=== PATIENT | female | born 1965 | race African-American/Black ===

== ENCOUNTER 2019-08-24 03:24 | Emergency (ER) | payer MEDICAID, OTHER ==
[~2019-08-24] VITALS: Ht 165.1 cm; Wt 86.2 kg
[~2019-08-24 03:24] MED LIST: ATENOLOL25 MG ORAL; ATIVAN1 MG ORAL; BACTRIM-DS1 EA ORAL; CIPRO500 MG/51 PO; DAILY VITE1 EACH ORAL; ERYPED 200200 MG/5 M PO; FLAGYL500 MG ORAL; IMODIUM2 MG ORAL; LASIX20 M1 ORAL; LEVSIN-SL0.125 MG SL; METRONIDAZOLE500 MG ORAL; NEURONTIN300 MG PO; NITROFURANTOIN100 M2 ORAL; NORCO 10/3251 EA ORAL; NORCO1 E1 ORAL; NORVASC5 MG ORAL; OXYCODONE HCL E10 MG PO; PLAQUENIL200 MG ORAL; PREDNISOLO15 MG/5 M1 ORAL; PREDNISONE10 MG ORAL; PREDNISONE20 MG ORAL; QUETIAPINE FUMA50 MG ORAL; RISPERDAL1 MG PO; ROBAXIN500 MG PO; ROCEPHIN1 GM IJ; TRAMADOL HCL50 MG ORAL; VITAMIN C500 M1 PO; ZANTAC150 MG ORAL; ZOFRAN ODT4 MG ORAL; ZOFRAN4 M1 ORAL; ZOFRAN4 MG ORAL; ZOLPIDEM TARTRAT5 MG ORAL
--- NOTE | 2019-08-24 03:29 | NUR ---
ED Nurse Note: Patient brought in by ambulance with complaints of fukl body pain with emphasis on bilateral feet. Patient is forgetful but 's contact was rendered for informing of discharge planning since patient only uses public transportation.
[2019-08-24 03:31] VITALS: BP 149/83
--- NOTE | 2019-08-24 03:48 | Emergency Room Report ---
History of Present Illness General Chief Complaint: Pain Source: Patient, Medical Record, EMS Present Illness HPI This is a 54-year-old female with a history of lupus and high blood pressure. She also history of chronic pain. She presents with chief complaint of generalized body pain secondary to her lupus. Onset for last day or so. Pain is 9 out of 10. Diffuse in nature. Her pain medication at home is not helping. No nausea. She says she has had some diarrhea and increased urination. Nothing made it better. Nothing made it worse. Denies any fever chills but denies any trauma. Similar symptom in the past. Allergies: Coded Allergies: NO KNOWN DRUG ALLERGIES (Unverified Allergy, Unknown, 07/06/14) COVID-19 Screening Contact w/high risk pt: No Recent Travel to affected area: No Experienced COVID-19 symptoms?: No Patient History Past Medical History: see triage record, old chart reviewed, HTN Past Surgical History: other Pertinent Family History: none Social History: Denies: smoking Now: No Immunizations: other Reviewed Nursing Documentation: PMH: Agreed; PSxH: Agreed Nursing Documentation-PMH Hx Cardiac Problems: Yes Hx Hypertension: Yes Hx Pacemaker: No Hx Asthma: No Hx COPD: No Hx Diabetes: No Hx Cancer: No Hx Gastrointestinal Problems: Yes - HERNIATED DISC Hx Dialysis: No History Of Psychiatric Problem: Yes - depression, anxiety Hx Neurological Problems: No - LUPUS, CHRONIC PAIN Hx Cerebrovascular Accident: No Hx Seizures: No Review of Systems Eye: Denies: eye pain, blurred vision ENT: Denies: ear pain, nose congestion, throat swelling Respiratory: Denies: cough, shortness of breath Cardiovascular: Denies: chest pain, palpitations Gastrointestinal: Denies: abdominal pain, diarrhea, nausea, vomiting Musculoskeletal: Reports: muscle pain; Denies: back pain, joint pain Skin: Denies: rash Neurological: Denies: headache, numbness Endocrine: Denies: increased thirst, increased urine Hematologic/Lymphatic: Denies: easy bruising All Other Systems: negative except mentioned in HPI Physical Exam Vital Signs Date Time Temp Pulse Resp B/P (MAP) Pulse Ox O2 Delivery O2 Flow Rate FiO2 08/24/19 03:25 98.2 81 20 149/83 (105) 99 Room Air Vitals with high blood pressure Sp02 EP Interpretation: reviewed, normal General Appearance: well appearing, no apparent distress, alert Head: normocephalic, atraumatic Eyes: bilateral eye PERRL, bilateral eye EOMI ENT: hearing grossly normal, normal pharynx Neck: full range of motion, supple, no meningismus Respiratory: chest non-tender, lungs clear, normal breath sounds Cardiovascular #1: regular rate, rhythm, no murmur Gastrointestinal: normal bowel sounds, non tender, no mass, no organomegaly, no bruit, non-distended Musculoskeletal: back normal, normal range of motion, gait/station normal Psychiatric: mood/affect normal Medical Decision Making Diagnostic Impression: Primary Impression: Exacerbation of systemic lupus ER Course Presents with exacerbation of her chronic pain. This may be a lupus flare. Labs unremarkable. Urine showed no infection. Will discharge home. Pain is well controlled now. Last Vital Signs Date Time Temp Pulse Resp B/P (MAP) Pulse Ox O2 Delivery O2 Flow Rate FiO2 08/24/19 03:31 98.2 79 20 149/83 99 Room Air Status: improved Disposition: HOME, SELF-CARE Condition: Stable Additional Instructions: Follow-up with your doctor in 7 days. Increase fluids. Take your pain medication. Return if symptoms worsen. Aramis Fairchild MD Aug 24, 2019 03:48
[2019-08-24] MEDS ORDERED: HYDROmorphone 1mg/ml Carpuject IVP ONE (04:00)
--- NOTE | 2019-08-24 04:16 | NUR ---
ED Nurse Note: Patient provided with warm blankets after expressing that the environment was too cold. Patient is now resting comfortably with no complaiints of pain and IV medication administration. Will continue to monitor for discharge.
[2019-08-24 04:18] LABS: APPEARANCE,URINE CLEAR; BASOPHILS % (AUTO) 1.8 % (0.0-2.0); BILIRUBIN, URINE NEGATIVE (NEGATIVE); COLOR,URINE PALE YELLOW; EOSINOPHILS % (AUTO) 2.3 % (0.0-3.0); GLUCOSE, URINE (UA) NEGATIVE (NEGATIVE); HEMOGLOBIN 15.8 G/DL (12.0-16.0); KETONES,URINE NEGATIVE (NEGATIVE); LEUKOCYTE ESTERASE ,URINE NEGATIVE (NEGATIVE); LYMPHOCYTES % (AUTO) 32.4 % (20.0-45.0); MEAN CORPUSCULAR VOLUME 88 FL (80-99); MONOCYTES % (AUTO) 7.8 % (1.0-10.0); NEUTROPHILS % (AUTO) 55.7 % (45.0-75.0); NITRITE,URINE NEGATIVE (NEGATIVE); PH,URINE 6 (4.5-8.0); PLATELET COUNT 274 K/UL (150-450); PROTEIN,URINE NEGATIVE (NEGATIVE); RED BLOOD COUNT 5.24 M/UL (4.20-5.40); RED CELL DISTRIBUTION WIDTH 11.1 % (11.6-14.8); UROBILINOGEN,URINE NORMAL MG/DL (0.0-1.0); WHITE BLOOD COUNT 11.8 K/UL (4.8-10.8)
[2019-08-24 04:26] LABS: ANION GAP 13 mmol/L (5-15); BLOOD UREA NITROGEN 5 mg/dL (7-18); CALCIUM 9.4 MG/DL (8.5-10.1); CARBON DIOXIDE 26 MMOL/L (21-32); CHLORIDE 108 MMOL/L (98-107); CREATININE 0.6 MG/DL (0.55-1.30); POTASSIUM 3.5 MMOL/L (3.5-5.1); SODIUM 147 MMOL/L (136-145)
[2019-08-24 05:26] VITALS: BP 149/83
--- NOTE | 2019-08-24 05:26 | NUR ---
ER DISCHARGE NOTE: Patient is cleared to be discharged per ERMD, pt is aox4, on room air, with stable vital signs. pt was given dc and prescription instructions, pt was able to verbalize understanding, pt id band and iv site removed without complications. pt is able to ambulate with steady gait. pt took all belongings.
== END 2019-08-24 05:26 | disposition home or self-care (01) ==
LOC: EDUNIT# 03:24 → EDBD 03:24 → EMR 03:51
DX: M32.9 Systemic lupus erythematosus, unspecified (principal); I10 Essential (primary) hypertension; F32.9 Major depressive disorder, single episode, unspecified; F41.9 Anxiety disorder, unspecified
CPT/HCPCS: 36415; 80048; 81001; 85025; 96374; 96375; 99284; J1170; J2405

== ENCOUNTER 2020-07-03 23:45 | Emergency (ER) | payer OTHER, MEDICAID ==
[~2020-07-03] VITALS: Ht 175.3 cm; Wt 72.6 kg
--- NOTE | 2020-07-03 23:55 | NUR ---
ED Nurse Note: Patient BIBA from home, complaining of generalized body aches. Patient's medical history includes Lupus and HTN. Patient is AOx3, disoriented to time, forgetful, calm and cooperative. Vital signs stable.
--- NOTE | 2020-07-04 00:12 | Emergency Room Report ---
History of Present Illness General Chief Complaint: Pain Source: Patient Present Illness HPI This is a 55-year-old female with history of lupus. She presents with chief complaint of exacerbation of her lupus pain. Pain is diffuse in nature. She also has constipation and diarrhea and nausea and vomiting. Onset for last 2 to 3 days. No fever chills. No trauma. Pain is 9 out of 10. Her [place] at home not helping. Denies any other complaint. This is a chronic issue with multiple exacerbations and hospitalization and ER visit. Allergies: Coded Allergies: NO KNOWN DRUG ALLERGIES (Unverified Allergy, Unknown, 07/06/14) COVID-19 Screening Contact w/high risk pt: No Recent Travel to affected area: No Experienced COVID-19 symptoms?: No COVID-19 Testing performed SET UP MECH[employer]IC COATING MACHINES: No Patient History Past Medical History: see triage record, old chart reviewed Past Surgical History: other Pertinent Family History: none Social History: Denies: smoking Now: No Immunizations: other Reviewed Nursing Documentation: PMH: Agreed; PSxH: Agreed Nursing Documentation-PMH Past Medical History: No Stated History Hx Cardiac Problems: Yes Hx Hypertension: Yes Hx Pacemaker: No Hx Asthma: No Hx COPD: No Hx Diabetes: No Hx Cancer: No Hx Gastrointestinal Problems: Yes - HERNIATED DISC Hx Dialysis: No Hx Neurological Problems: No - LUPUS, CHRONIC PAIN Hx Cerebrovascular Accident: No Hx Seizures: No Review of Systems Eye: Denies: eye pain, blurred vision ENT: Denies: ear pain, nose congestion, throat swelling Respiratory: Denies: cough, shortness of breath Cardiovascular: Denies: chest pain, palpitations Gastrointestinal: Reports: abdominal pain; Denies: diarrhea, nausea, vomiting Musculoskeletal: Reports: back pain; Denies: joint pain Skin: Denies: rash Neurological: Denies: headache, numbness Endocrine: Denies: increased thirst, increased urine Hematologic/Lymphatic: Denies: easy bruising All Other Systems: negative except mentioned in HPI Physical Exam Vital Signs Date Time Temp Pulse Resp B/P (MAP) Pulse Ox O2 Delivery O2 Flow Rate FiO2 07/03/20 23:51 98.1 77 18 147/82 (103) 97 Room Air Vitals unremarkable Sp02 EP Interpretation: reviewed, normal General Appearance: well appearing, no apparent distress, alert Head: normocephalic, atraumatic Eyes: bilateral eye PERRL, bilateral eye EOMI ENT: hearing grossly normal, normal pharynx Neck: full range of motion, supple, no meningismus Respiratory: chest non-tender, lungs clear, normal breath sounds Cardiovascular #1: regular rate, rhythm, no murmur Gastrointestinal: normal bowel sounds, non tender, no mass, no organomegaly, no bruit, non-distended Musculoskeletal: back normal, normal range of motion, gait/station normal Psychiatric: mood/affect normal Medical Decision Making Diagnostic Impression: Primary Impression: Exacerbation of systemic lupus ER Course Patient presents with exacerbation of her lupus and pain. No evidence of any acute abdomen. Urine is negative. No evidence of obstruction. Last Vital Signs Date Time Temp Pulse Resp B/P (MAP) Pulse Ox O2 Delivery O2 Flow Rate FiO2 07/03/20 23:51 98.1 77 18 147/82 (103) 97 Room Air Status: improved Disposition: HOME, SELF-CARE Condition: Stable Additional Instructions: Follow-up with your doctor in 7 days. Take your pain medication. Return if symptoms worsen. Aramis Fairchild MD Jul 04, 2020 00:12
[2020-07-04] MEDS ORDERED: HYDROmorphone 1mg/ml Carpuject IVP ONE (00:15)
[2020-07-04 00:34] LABS: APPEARANCE,URINE CLEAR; BASOPHILS % (AUTO) 1.2 % (0.0-2.0); BILIRUBIN, URINE NEGATIVE (NEGATIVE); COLOR,URINE PALE YELLOW; GLUCOSE, URINE (UA) NEGATIVE (NEGATIVE); HEMATOCRIT 43.2 % (37.0-47.0); HEMOGLOBIN 14.5 G/DL (12.0-16.0); KETONES,URINE NEGATIVE (NEGATIVE); LEUKOCYTE ESTERASE ,URINE NEGATIVE (NEGATIVE); LYMPHOCYTES % (AUTO) 29.8 % (20.0-45.0); MEAN CORPUSCULAR VOLUME 94 FL (80-99); MONOCYTES % (AUTO) 8.5 % (1.0-10.0); NEUTROPHILS % (AUTO) 59.6 % (45.0-75.0); NITRITE,URINE NEGATIVE (NEGATIVE); PH,URINE 7 (4.5-8.0); PLATELET COUNT 285 K/UL (150-450); PROTEIN,URINE NEGATIVE (NEGATIVE); RED CELL DISTRIBUTION WIDTH 13.1 % (11.6-14.8); UROBILINOGEN,URINE NORMAL MG/DL (0.0-1.0); WHITE BLOOD COUNT 15.5 K/UL (4.8-10.8)
[2020-07-04 00:36] VITALS: BP 127/96
[2020-07-04 00:42] LABS: ANION GAP 8 mmol/L (5-15); BLOOD UREA NITROGEN 12 mg/dL (7-18); CALCIUM 9.5 MG/DL (8.5-10.1); CARBON DIOXIDE 30 MMOL/L (21-32); CHLORIDE 106 MMOL/L (98-107); CREATININE 0.9 MG/DL (0.55-1.30); POTASSIUM 4.4 MMOL/L (3.5-5.1); SODIUM 144 MMOL/L (136-145)
[2020-07-04 00:46] LABS: ALANINE AMINOTRANSFERASE 19 U/L (12-78); ALBUMIN 3.8 G/DL (3.4-5.0); ALKALINE PHOSPHATASE 103 U/L (46-116); ASPARTATE AMINO TRANSFERASE 12 U/L (15-37); BILIRUBIN,TOTAL 0.3 MG/DL (0.2-1.0)
[2020-07-04 01:52] VITALS: BP 133/77
--- NOTE | 2020-07-04 02:00 | NUR ---
ED Nurse Note: Patient is resting comfortably with eyes closed. No signs of pain or discomfort.
[2020-07-04 04:24] VITALS: BP 137/76
--- NOTE | 2020-07-04 05:18 | NUR ---
ED Nurse Note:Patient is resting comfortably, vitals stable, no signs of pain or discomfort. Patient is ready to be discharged, Lui Patten called, he says he'll be here at 7AM to pick pt up. 126/62, 78
[2020-07-04 09:01] VITALS: BP 137/76
== END 2020-07-04 09:00 | disposition home or self-care (01) ==
LOC: EMR 07-04 00:10
DX: M32.9 Systemic lupus erythematosus, unspecified (principal); G89.29 Other chronic pain; I11.9 Hypertensive heart disease without heart failure
CPT/HCPCS: 36415; 80053; 81001; 85025; 96361; 96374; 96375; 99284; J1170; J2405; J7030

== ENCOUNTER 2020-07-09 17:28 | Emergency (ER) | payer OTHER, MEDICAID ==
[~2020-07-09] VITALS: Ht 165.1 cm; Wt 74.8 kg
[2020-07-09] MEDS ORDERED: HYDROmorphone 1mg/ml Carpuject IVP ONE ×2 (17:45→20:30)
--- NOTE | 2020-07-09 18:00 | Emergency Room Report ---
History of Present Illness General Chief Complaint: General Complaint Source: Medical Record Present Illness HPI 55-year-old female with history of lupus and peripheral neuropathy seen here many times in the past for pain flares here yet again for lupus pain flare. Patient says that she feels generalized body pain that is nonlocalizable. No vision changes, focal numbness or weakness, fevers, chills, chest pain, palpitations, shortness of breath, back pain, abdominal pain, nausea, vomiting, diarrhea, dysuria. Allergies: Coded Allergies: NO KNOWN DRUG ALLERGIES (Unverified Allergy, Unknown, 07/06/14) COVID-19 Screening Contact w/high risk pt: No Recent Travel to affected area: No Experienced COVID-19 symptoms?: No COVID-19 Testing performed CARD BRUSHER: No Nursing Documentation-PMH Hx Cardiac Problems: Yes Hx Hypertension: Yes Hx Pacemaker: No Hx Asthma: No Hx COPD: No Hx Diabetes: No Hx Cancer: No Hx Gastrointestinal Problems: Yes - HERNIATED DISC Hx Dialysis: No Hx Neurological Problems: No - LUPUS, CHRONIC PAIN Hx Cerebrovascular Accident: No Hx Seizures: No Review of Systems All Other Systems: negative except mentioned in HPI Physical Exam Vital Signs Date Time Temp Pulse Resp B/P (MAP) Pulse Ox O2 Delivery O2 Flow Rate FiO2 07/09/20 17:43 98.4 88 16 146/75 (98) 98 Room Air Sp02 EP Interpretation: reviewed, normal General Appearance: no apparent distress, alert, non-toxic Head: normocephalic, atraumatic Eyes: bilateral eye normal inspection, bilateral eye PERRL ENT: hearing grossly normal, normal pharynx, no angioedema, normal voice Neck: full range of motion, supple/symm/no masses Respiratory: chest non-tender, lungs clear, normal breath sounds, speaking full sentences Cardiovascular #1: regular rate, rhythm, no edema Cardiovascular #2: 2+ carotid (R), 2+ carotid (L), 2+ radial (R), 2+ radial (L), 2+ dorsalis pedis (R), 2+ dorsalis pedis (L) Gastrointestinal: normal bowel sounds, non tender, soft, non-distended, no guarding, no rebound Rectal: deferred Genitourinary: normal inspection, no CVA tenderness Musculoskeletal: back normal, normal range of motion, gait/station normal, non- tender Neurologic: alert, motor strength/tone normal, oriented x3, sensory intact, responsive, speech normal Psychiatric: judgement/insight normal, memory normal, mood/affect normal, no suicidal/homicidal ideation Lymphatic: no adenopathy Medical Decision Making Diagnostic Impression: Primary Impression: Lupus ER Course Laboratory Tests Test 07/09/20 17:50 07/09/20 21:05 White Blood Count 13.2 K/UL (4.8-10.8) H Red Blood Count 4.95 M/UL (4.20-5.40) Hemoglobin 15.4 G/DL (12.0-16.0) Hematocrit 47.3 % (37.0-47.0) H Mean Corpuscular Volume 95 FL (80-99) Mean Corpuscular Hemoglobin 31.0 PG (27.0-31.0) Mean Corpuscular Hemoglobin Concent 32.5 G/DL (32.0-36.0) Red Cell Distribution Width 13.2 % (11.6-14.8) Platelet Count 351 K/UL (150-450) Mean Platelet Volume 6.8 FL (6.5-10.1) Neutrophils (%) (Auto) 71.3 % (45.0-75.0) Lymphocytes (%) (Auto) 23.2 % (20.0-45.0) Monocytes (%) (Auto) 4.3 % (1.0-10.0) Eosinophils (%) (Auto) 0.2 % (0.0-3.0) Basophils (%) (Auto) 1.0 % (0.0-2.0) Sodium Level 142 MMOL/L (136-145) Potassium Level 3.8 MMOL/L (3.5-5.1) Chloride Level 104 MMOL/L (98-107) Carbon Dioxide Level 28 MMOL/L (21-32) Anion Gap 10 mmol/L (5-15) Blood Urea Nitrogen 13 mg/dL (7-18) Creatinine 0.8 MG/DL (0.55-1.30) Estimated Glomerular Filtration Rate > 60 mL/min (>60) Glucose Level 115 MG/DL (74-106) H Calcium Level 9.9 MG/DL (8.5-10.1) Total Bilirubin 0.3 MG/DL (0.2-1.0) Aspartate Amino Transferase (AST) 16 U/L (15-37) Alanine Aminotransferase (ALT) 22 U/L (12-78) Alkaline Phosphatase 98 U/L (46-116) Total Protein 8.2 G/DL (6.4-8.2) Albumin 4.0 G/DL (3.4-5.0) Globulin 4.2 g/dL Albumin/Globulin Ratio 1.0 (1.0-2.7) Urine Color Pending Urine Appearance Pending Urine pH Pending Urine Specific [place] Pending Urine Protein Pending Urine Glucose (UA) Pending Urine Ketones Pending Urine Blood Pending Urine Nitrite Pending Urine Bilirubin Pending Urine Urobilinogen Pending Urine Leukocyte Esterase Pending 55-year-old female here with diffuse generalized pain which she says "is just like my usual lupus flares." Patient was here several days ago for the same complaint. She had a normal physical examination. CBC, CMP unremarkable. She was given IV normal saline and 2 mg of Dilaudid. Patient said that she felt much improved after the pain medication was given and was requesting to be discharged home. Patient was told to return with any worsening symptoms. Dis charged in stable condition. Last Vital Signs Date Time Temp Pulse Resp B/P (MAP) Pulse Ox O2 Delivery O2 Flow Rate FiO2 07/09/20 17:43 98.4 88 16 146/75 (98) 98 Room Air Scripts Hydrocodone/Acetaminophen 5-325* (HYDROCODONE/ACETAMINOPHEN 5-325*) 1 Each Tablet 1 TAB ORAL Q4H PRN for For Pain, #10 TAB 0 Refills Prov: Cole Rivera M.D. 07/09/20 Cole Rivera M.D. Jul 09, 2020 18:00
[2020-07-09 18:02] LABS: EOSINOPHILS % (AUTO) 0.2 % (0.0-3.0); HEMATOCRIT 47.3 % (37.0-47.0); HEMOGLOBIN 15.4 G/DL (12.0-16.0); LYMPHOCYTES % (AUTO) 23.2 % (20.0-45.0); MEAN CORPUSCULAR VOLUME 95 FL (80-99); MONOCYTES % (AUTO) 4.3 % (1.0-10.0); NEUTROPHILS % (AUTO) 71.3 % (45.0-75.0); PLATELET COUNT 351 K/UL (150-450); RED BLOOD COUNT 4.95 M/UL (4.20-5.40); RED CELL DISTRIBUTION WIDTH 13.2 % (11.6-14.8); WHITE BLOOD COUNT 13.2 K/UL (4.8-10.8)
[2020-07-09 18:10] VITALS: BP 152/93
[2020-07-09 18:10] LABS: ANION GAP 10 mmol/L (5-15); BLOOD UREA NITROGEN 13 mg/dL (7-18); CALCIUM 9.9 MG/DL (8.5-10.1); CARBON DIOXIDE 28 MMOL/L (21-32); CHLORIDE 104 MMOL/L (98-107); CREATININE 0.8 MG/DL (0.55-1.30); POTASSIUM 3.8 MMOL/L (3.5-5.1); SODIUM 142 MMOL/L (136-145)
[2020-07-09 18:14] LABS: ALANINE AMINOTRANSFERASE 22 U/L (12-78); ALKALINE PHOSPHATASE 98 U/L (46-116); ASPARTATE AMINO TRANSFERASE 16 U/L (15-37); BILIRUBIN,TOTAL 0.3 MG/DL (0.2-1.0)
--- NOTE | 2020-07-09 18:23 | NUR ---
55-year-old female with history of lupus and peripheral neuropathy seen here many times in the past for pain flares here yet again for lupus pain flare. Patient says that she feels generalized body pain that is nonlocalizable. No vision changes, focal numbness or weakness, fevers, chills, chest pain, palpitations, shortness of breath, back pain, abdominal pain, nausea, vomiting, diarrhea, dysuria.
[2020-07-09 20:25] VITALS: BP 133/64
[2020-07-09] MEDS ORDERED: HYDROCODON-ACE1 EA15 ORAL (21:23)
[2020-07-09 21:31] LABS: APPEARANCE,URINE CLEAR; BILIRUBIN, URINE NEGATIVE (NEGATIVE); COLOR,URINE PALE YELLOW; GLUCOSE, URINE (UA) NEGATIVE (NEGATIVE); KETONES,URINE NEGATIVE (NEGATIVE); LEUKOCYTE ESTERASE ,URINE NEGATIVE (NEGATIVE); NITRITE,URINE NEGATIVE (NEGATIVE); PH,URINE 7 (4.5-8.0); PROTEIN,URINE NEGATIVE (NEGATIVE); UROBILINOGEN,URINE NORMAL MG/DL (0.0-1.0)
[2020-07-09 21:39] VITALS: BP 141/75
== END 2020-07-09 21:44 | disposition home or self-care (01) ==
LOC: EDBD 17:28 → EMR 19:54
DX: M32.9 Systemic lupus erythematosus, unspecified (principal); G89.29 Other chronic pain; I11.9 Hypertensive heart disease without heart failure
CPT/HCPCS: 36415; 80053; 81003; 85025; 96361; 96374; 96376; 99284; J1170

== ENCOUNTER 2020-07-11 23:30 | Emergency (ER) | payer OTHER, MEDICAID ==
[~2020-07-11] VITALS: Ht 175.3 cm; Wt 74.8 kg
[~2020-07-11 23:30] MED LIST changes: +HYDROCODON-ACE1 EA15 ORAL
[2020-07-11] MEDS ORDERED: HYDROmorphone 1mg/ml Carpuject IM ONE (23:45)
--- NOTE | 2020-07-11 23:45 | NUR ---
ED Nurse Note:Patient brought in the ED, complaining of generalized body pain, pt has hx of Lupus.
--- NOTE | 2020-07-11 23:50 | Emergency Room Report ---
History of Present Illness General Chief Complaint: Pain Source: Patient, Medical Record, EMS Present Illness HPI Is a 55-year-old female with a history of lupus with multiple exacerbation of her chronic pain. Pain is diffuse in nature. She has been here several times for this. She was here recently a couple days ago. She says she ran out of her [place]. No fever chills. No trauma. Pain is 10 out of 10. No nausea vomiting or diarrhea. Denies any other complaint. Allergies: Coded Allergies: NO KNOWN DRUG ALLERGIES (Unverified Allergy, Unknown, 07/06/14) COVID-19 Screening Contact w/high risk pt: No Recent Travel to affected area: No Experienced COVID-19 symptoms?: No COVID-19 Testing performed GROUTER HELPER: No Patient History Past Medical History: see triage record, old chart reviewed Past Surgical History: other Pertinent Family History: none Social History: Denies: smoking Now: No Immunizations: other Reviewed Nursing Documentation: PMH: Agreed; PSxH: Agreed Nursing Documentation-PMH Hx Cardiac Problems: Yes Hx Hypertension: Yes Hx Pacemaker: No Hx Asthma: No Hx COPD: No Hx Diabetes: No Hx Cancer: No Hx Gastrointestinal Problems: Yes - HERNIATED DISC Hx Dialysis: No Hx Neurological Problems: No - LUPUS, CHRONIC PAIN Hx Cerebrovascular Accident: No Hx Seizures: No Review of Systems Eye: Denies: eye pain, blurred vision ENT: Denies: ear pain, nose congestion, throat swelling Respiratory: Denies: cough, shortness of breath Cardiovascular: Denies: chest pain, palpitations Gastrointestinal: Denies: abdominal pain, diarrhea, nausea, vomiting Musculoskeletal: Reports: back pain, muscle pain; Denies: joint pain Skin: Denies: rash Neurological: Denies: headache, numbness Endocrine: Denies: increased thirst, increased urine Hematologic/Lymphatic: Denies: easy bruising All Other Systems: negative except mentioned in HPI Physical Exam Vital Signs Date Time Temp Pulse Resp B/P (MAP) Pulse Ox O2 Delivery O2 Flow Rate FiO2 07/11/20 23:31 98.8 74 18 153/77 (102) 99 Room Air Vitals with high blood pressure Sp02 EP Interpretation: reviewed, normal General Appearance: well appearing, no apparent distress, alert Head: normocephalic, atraumatic Eyes: bilateral eye PERRL, bilateral eye EOMI ENT: hearing grossly normal, normal pharynx Neck: full range of motion, supple, no meningismus Respiratory: chest non-tender, lungs clear, normal breath sounds Cardiovascular #1: regular rate, rhythm, no murmur Gastrointestinal: normal bowel sounds, non tender, no mass, no organomegaly, no bruit, non-distended Musculoskeletal: back normal, normal range of motion, gait/station normal Psychiatric: mood/affect normal Medical Decision Making Diagnostic Impression: Primary Impression: Exacerbation of systemic lupus Additional Impression: Opioid dependence Qualified Codes: F11.20 - Opioid dependence, uncomplicated ER Course Patient with exacerbation of chronic pain. No evidence of systemic illness or infection. Better after pain medication. Will discharge home. Last Vital Signs Date Time Temp Pulse Resp B/P (MAP) Pulse Ox O2 Delivery O2 Flow Rate FiO2 07/11/20 23:31 98.8 74 18 153/77 (102) 99 Room Air Status: improved Disposition: HOME, SELF-CARE Condition: Stable Scripts Hydrocodone/Acetaminophen 5-325* (HYDROCODONE/ACETAMINOPHEN 5-325*) 1 Each Tablet 1 TAB ORAL Q6H PRN for For Pain, #20 TAB 0 Refills Prov: Aramis Fairchild MD 07/12/20 Additional Instructions: Follow-up with your doctor in 3 to 7 days for refills on your medication. Return if symptoms worsen. Aramis Fairchild MD Jul 11, 2020 23:50
[2020-07-12] MEDS ORDERED: HYDROCODON-ACE1 EA15 ORAL (00:34)
[2020-07-12 00:51] VITALS: BP 153/77
--- NOTE | 2020-07-12 00:54 | NUR ---
ER DISCHARGE NOTE: Patient is cleared to be discharged per ERMD, pt is aox3 disoriented to time, on room air, with stable vital signs. pt was given dc and prescription instructions, pt was able to verbalize understanding, pt id band removed without complications. pt is able to ambulate with steady gait. pt took all belongings.
== END 2020-07-12 00:57 | disposition home or self-care (01) ==
LOC: EDBD 23:30 → EMR 07-12 00:05
DX: F11.20 Opioid dependence, uncomplicated (principal); G89.29 Other chronic pain; I11.9 Hypertensive heart disease without heart failure; Z79.1 Long term (current) use of non-steroidal anti-inflammatories (NSAID)
CPT/HCPCS: 96372; 99283; J1170

== ENCOUNTER 2020-07-14 13:41 | Emergency (ER) | payer OTHER, MEDICAID ==
[~2020-07-14] VITALS: Ht 172.7 cm; Wt 68.0 kg
--- NOTE | 2020-07-14 14:11 | Emergency Room Report ---
History of Present Illness General Chief Complaint: Pain Source: Patient Present Illness HPI Disclaimer: Please note that this report is being documented using DRAGON technology. This can lead to erroneous entry secondary to incorrect interpretation by the dictating instrument. HPI: 55-year-old female history of lupus presents for generalized body pain. Duration of 2 days. No injury reported. Currently she is only complaining of pain in the right arm where EMS tried to place an IV line. Otherwise she complains of generalized aching muscles and joints. Denies abdominal pain, fever, chills, nausea, vomiting, diarrhea, dysuria or hematuria. She does report constipation. She takes hydrocodone, tramadol at home for control of pain. She states is not helping. She has an appointment to see her PMD tomorrow. Denies cough, congestion, chest pain, palpitations, shortness of breath. Seen at this emergency department multiple times for similar presentation. PMH: Lupus PSH: Reviewed Allergies: None reported Social Hx: None reported Allergies: Coded Allergies: NO KNOWN DRUG ALLERGIES (Unverified Allergy, Unknown, 07/06/14) COVID-19 Screening Contact w/high risk pt: No Recent Travel to affected area: No Experienced COVID-19 symptoms?: No COVID-19 Testing performed FLOUR BROKER: No Nursing Documentation-PMH Hx Cardiac Problems: Yes Hx Hypertension: Yes Hx Pacemaker: No Hx Asthma: No Hx COPD: No Hx Diabetes: No Hx Cancer: No Hx Gastrointestinal Problems: Yes - HERNIATED DISC Hx Dialysis: No Hx Neurological Problems: No - LUPUS, CHRONIC PAIN Hx Cerebrovascular Accident: No Hx Seizures: No Review of Systems All Other Systems: negative except mentioned in HPI Physical Exam Vital Signs Date Time Temp Pulse Resp B/P (MAP) Pulse Ox O2 Delivery O2 Flow Rate FiO2 07/14/20 13:30 98.2 70 18 131/77 (95) 97 Room Air General: Awake and alert, no acute distress HEENT: NC/AT. EOMI. Cardiovascular: RRR. S1 and S2 normal. No murmur appreciated Resp: Normal work of breathing. No cough, wheezing or crackles appreciated Abdomen: Abdomen is soft, nondistended. Obese abdomen. Nontender Skin: Intact. No abrasions, laceration or rash over the exposed skin MSK: Normal tone and bulk. Moving all extremities. No obvious deformity. Diffuse tenderness to palpation in the major muscles and joints. No limitation to range of motion. Neuro: Awake and alert. Mentating appropriately. Medical Decision Making Diagnostic Impression: Primary Impression: Myalgia ER Course 55-year-old female history of lupus presents for body wide pain. Also reporting constipation. Abdomen x-ray shows nonspecific bowel gas pattern. No obvious obstruction. Slight elevation in white count is seen on her prior visits. Chemistry unremarkable. Cures report shows patient recently filled a short-term prescription for additional pain medication and should still have some of her 30-day supply from May as of today. She is scheduled to see her doctor tomorrow. Stable for outpatient follow-up. Laboratory Tests Test 07/14/20 14:17 White Blood Count 13.5 K/UL (4.8-10.8) H Red Blood Count 5.85 M/UL (4.20-5.40) H Hemoglobin 17.5 G/DL (12.0-16.0) H Hematocrit 56.1 % (37.0-47.0) H Mean Corpuscular Volume 96 FL (80-99) Mean Corpuscular Hemoglobin 29.8 PG (27.0-31.0) Mean Corpuscular Hemoglobin Concent 31.1 G/DL (32.0-36.0) L Red Cell Distribution Width 13.1 % (11.6-14.8) Platelet Count 242 K/UL (150-450) Mean Platelet Volume 7.3 FL (6.5-10.1) Neutrophils (%) (Auto) 78.3 % (45.0-75.0) H Lymphocytes (%) (Auto) 17.3 % (20.0-45.0) L Monocytes (%) (Auto) 3.4 % (1.0-10.0) Eosinophils (%) (Auto) 0.3 % (0.0-3.0) Basophils (%) (Auto) 0.6 % (0.0-2.0) Sodium Level 143 MMOL/L (136-145) Potassium Level 4.2 MMOL/L (3.5-5.1) Chloride Level 106 MMOL/L (98-107) Carbon Dioxide Level 23 MMOL/L (21-32) Anion Gap 14 mmol/L (5-15) Blood Urea Nitrogen 10 mg/dL (7-18) Creatinine 0.7 MG/DL (0.55-1.30) Estimated Glomerular Filtration Rate > 60 mL/min (>60) Glucose Level 112 MG/DL (74-106) H Calcium Level 10.2 MG/DL (8.5-10.1) H Other X-Ray Diagnostic Results Other X-Ray Diagnostic Results : X-Ray ordered: Abdomen # of Views/Limited Vs Complete: 1 View Indication: Other - Constipation EP Interpretation: Yes Interpretation: nonspecific bowel gas, no sbo Impression: No acute disease Electronically Signed by: Electronically signed by Dr. Amilcar Moeller MD Last Vital Signs Date Time Temp Pulse Resp B/P (MAP) Pulse Ox O2 Delivery O2 Flow Rate FiO2 07/14/20 13:30 98.2 70 18 131/77 (95) 97 Room Air Disposition: HOME, SELF-CARE Condition: Stable Amilcar Moeller MD Jul 14, 2020 14:11
[2020-07-14] MEDS ORDERED: HYDROmorphone 1mg/ml Carpuject IVP ONE (14:15)
[2020-07-14 14:31] VITALS: BP 145/69
[2020-07-14 15:06] LABS: BASOPHILS % (AUTO) 0.6 % (0.0-2.0); EOSINOPHILS % (AUTO) 0.3 % (0.0-3.0); HEMATOCRIT 56.1 % (37.0-47.0); HEMOGLOBIN 17.5 G/DL (12.0-16.0); LYMPHOCYTES % (AUTO) 17.3 % (20.0-45.0); MEAN CORPUSCULAR VOLUME 96 FL (80-99); MONOCYTES % (AUTO) 3.4 % (1.0-10.0); NEUTROPHILS % (AUTO) 78.3 % (45.0-75.0); PLATELET COUNT 242 K/UL (150-450); RED BLOOD COUNT 5.85 M/UL (4.20-5.40); RED CELL DISTRIBUTION WIDTH 13.1 % (11.6-14.8); WHITE BLOOD COUNT 13.5 K/UL (4.8-10.8)
[2020-07-14 15:13] LABS: ANION GAP 14 mmol/L (5-15); BLOOD UREA NITROGEN 10 mg/dL (7-18); CALCIUM 10.2 MG/DL (8.5-10.1); CARBON DIOXIDE 23 MMOL/L (21-32); CHLORIDE 106 MMOL/L (98-107); CREATININE 0.7 MG/DL (0.55-1.30); POTASSIUM 4.2 MMOL/L (3.5-5.1); SODIUM 143 MMOL/L (136-145)
--- NOTE | 2020-07-14 15:55 | Diagnostic Imaging Report ---
Indication: Abdominal pain Technique: XRAY Abdomen 1v Comparison: None Findings: Nonspecific, not overtly obstructive bowel gas pattern. No gaseous distention of small bowel loops or differential air-fluid levels are noted. There are surgical clips in the right upper quadrant. Degenerative changes noted in the lower lumbar spine. No acute osseous abnormality. Imaged lung bases grossly clear. Impression: Nonobstructive bowel gas pattern.
[2020-07-14 15:57] VITALS: BP 114/65
== END 2020-07-14 16:35 | disposition home or self-care (01) ==
LOC: EDBD 13:41 → EMR 15:31
DX: M79.18 Myalgia, other site (principal); I10 Essential (primary) hypertension; E66.9 Obesity, unspecified; K59.00 Constipation, unspecified
CPT/HCPCS: 36415; 74018; 80048; 85025; 96374; 99284; J1170

== ENCOUNTER 2020-07-22 13:48 | Emergency (ER) | payer OTHER, MEDICAID ==
[~2020-07-22] VITALS: Ht 165.1 cm; Wt 79.4 kg
--- NOTE | 2020-07-22 14:28 | Emergency Room Report ---
History of Present Illness General Chief Complaint: General Complaint Source: Patient Present Illness HPI Disclaimer: Please note that this report is being documented using [employer] technology. This can lead to erroneous entry secondary to incorrect interpretation by the dictating instrument. HPI: 55-year-old female history of lupus presents for generalized body aches. She reports pain in the joints in the upper and lower limbs. Also complaining of some pain in the muscles. Denies injury or fall. Denies change in strength. Denies numbness or tingling. Denies fever, chills, nausea, vomiting, diarrhea or other changes in her health. She states her home pain medication is not adequately controlling her symptoms at this time. She states this is a typical lupus flare for her. Has not seen her PMD lately. States she does not follow with rheumatology. PMH: Lupus PSH: Reviewed Allergies: Denied Social Hx: Reviewed Allergies: Coded Allergies: NO KNOWN DRUG ALLERGIES (Unverified Allergy, Unknown, 07/06/14) COVID-19 Screening Contact w/high risk pt: No Recent Travel to affected area: No Experienced COVID-19 symptoms?: No COVID-19 Testing performed FISH AND WILDLIFE WARDEN: No Nursing Documentation-PMH Hx Cardiac Problems: Yes Hx Hypertension: Yes Hx Pacemaker: No Hx Asthma: No Hx COPD: No Hx Diabetes: No Hx Cancer: No Hx Gastrointestinal Problems: Yes - HERNIATED DISC Hx Dialysis: No Hx Neurological Problems: No - LUPUS, CHRONIC PAIN Hx Cerebrovascular Accident: No Hx Seizures: No Review of Systems All Other Systems: negative except mentioned in HPI Physical Exam Vital Signs Date Time Temp Pulse Resp B/P (MAP) Pulse Ox O2 Delivery O2 Flow Rate FiO2 07/22/20 13:51 98.1 86 18 150/90 (110) 98 Room Air General: Awake and alert, no acute distress HEENT: NC/AT. EOMI. Cardiovascular: RRR. Resp: Normal work of breathing. Skin: Intact. No abrasions, laceration or rash over the exposed skin MSK: Normal tone and bulk. Moving all extremities. No obvious deformity. Tende rness in muscle and joints. No focal tenderness. Neuro: Awake and alert. Mentating appropriately. Medical Decision Making Diagnostic Impression: Primary Impression: Myalgia ER Course Is a 55-year-old female history of lupus presenting for generalized body pain. Patient here multiple times with similar symptoms. Recently completed a course of steroids. She is requesting IV opiates. I discussed with patient that her chronic lupus condition should be managed by her PMD and that she should see rheumatology regularly. Cures report shows recently filled prescription of 90 tablets of hydrocodone 10 mg on 07/15. Patient is otherwise well and has no other complaints aside from aches and pains in the muscles and joints. Do not believe she requires emergent labs or imaging. Stable for outpatient follow-up. Last Vital Signs Date Time Temp Pulse Resp B/P (MAP) Pulse Ox O2 Delivery O2 Flow Rate FiO2 07/22/20 13:51 98.1 86 18 150/90 (110) 98 Room Air Disposition: HOME, SELF-CARE Condition: Stable Referrals: NON PHYSICIAN (PCP) [facility] Additional Instructions: Please follow-up with your doctor to discuss your current medication regimen. Please follow-up with your primary care doctor in the next 1 to 3 days to discuss this emergency department visit and for reevaluation. If you have any new or worsening symptoms please return to the emergency department for reevaluation. Please note that this report is being documented using [employer] technology. This can lead to erroneous entry secondary to incorrect interpretation by the dictating instrument. Amilcar Moeller MD Jul 22, 2020 14:28
[2020-07-22] MEDS ORDERED: Ketorolac 30mg Inj IM ONE (14:30)
[2020-07-22 14:59] VITALS: BP 148/69
--- NOTE | 2020-07-22 14:59 | NUR ---
ED Nurse Note: Pt cleared by health care Provider for discharge. DC instructions given and explained to pt and verbalized understanding of teachings. All medical deviecs such as ID band removed. Pt is AAO x4, ambulatory and left with all personal belongings.
== END 2020-07-22 15:01 | disposition home or self-care (01) ==
LOC: EDBD 13:48 → EDUNIT# 13:48 → EMR 14:18
DX: M79.10 Myalgia, unspecified site (principal); I10 Essential (primary) hypertension; M32.9 Systemic lupus erythematosus, unspecified
CPT/HCPCS: 96372; 99283; J1885

== ENCOUNTER 2020-07-25 22:45 | Emergency (ER) | payer OTHER, MEDICAID ==
[~2020-07-25] VITALS: Ht 172.7 cm; Wt 77.1 kg
--- NOTE | 2020-07-25 22:53 | Emergency Room Report ---
History of Present Illness General Chief Complaint: Pain Source: Patient, Medical Record, EMS Present Illness HPI This is a 55-year-old female with a history of lupus and opioid dependency. She presents with chief plaint of body pain. Onset today. She has been to this hospital multiple times this month already. She just got out of [facility] for the same thing. She claimed that she does not have any pain medication at home. Complaining of generalized body pain of 10 out of 10. No nausea no vomiting. No fever chills. Feeling anxious. Denies any other complaint. Allergies: Coded Allergies: NO KNOWN DRUG ALLERGIES (Unverified Allergy, Unknown, 07/06/14) COVID-19 Screening Contact w/high risk pt: No Recent Travel to affected area: No Experienced COVID-19 symptoms?: No COVID-19 Testing performed LEGAL SPECIALIST: No Patient History Past Medical History: see triage record, old chart reviewed Past Surgical History: other Pertinent Family History: none Social History: Denies: smoking Now: No Immunizations: other Reviewed Nursing Documentation: PMH: Agreed; PSxH: Agreed Nursing Documentation-PMH Hx Cardiac Problems: Yes Hx Hypertension: Yes Hx Pacemaker: No Hx Asthma: No Hx COPD: No Hx Diabetes: No Hx Cancer: No Hx Gastrointestinal Problems: Yes - HERNIATED DISC Hx Dialysis: No Hx Neurological Problems: No - LUPUS, CHRONIC PAIN Hx Cerebrovascular Accident: No Hx Seizures: No Review of Systems Eye: Denies: eye pain, blurred vision ENT: Denies: ear pain, nose congestion, throat swelling Respiratory: Denies: cough, shortness of breath Cardiovascular: Denies: chest pain, palpitations Gastrointestinal: Denies: abdominal pain, diarrhea, nausea, vomiting Musculoskeletal: Reports: joint pain, muscle pain; Denies: back pain Skin: Denies: rash Neurological: Denies: headache, numbness Endocrine: Denies: increased thirst, increased urine Hematologic/Lymphatic: Denies: easy bruising All Other Systems: negative except mentioned in HPI Physical Exam Vital Signs Date Time Temp Pulse Resp B/P (MAP) Pulse Ox O2 Delivery O2 Flow Rate FiO2 07/25/20 22:46 98.1 80 18 149/80 (103) 97 Vitals normal Sp02 EP Interpretation: reviewed, normal General Appearance: well appearing, no apparent distress, alert Head: normocephalic, atraumatic Eyes: bilateral eye PERRL, bilateral eye EOMI ENT: hearing grossly normal, normal pharynx Neck: full range of motion, supple, no meningismus Respiratory: chest non-tender, lungs clear, normal breath sounds Cardiovascular #1: regular rate, rhythm, no murmur Gastrointestinal: normal bowel sounds, non tender, no mass, no organomegaly, no bruit, non-distended Musculoskeletal: back normal, normal range of motion, gait/station normal Psychiatric: anxious Medical Decision Making ER Course Patient presents with body pain. I suspect that she has opioid dependency. I spoke with her over the phone. Even though she picked up 90 tablets of [place] 10/325 on July 15, she is out. Before that she was given 120 tablets and was also taking tramadol and gabapentin in between. Her tramadol was removed and her gabapentin was cut down by half. She has also been more anxious because of the Covid pandemic. I recommend that she get referred to see a psychiatrist and pain management. There is no evidence of any infection. She felt better after shot of Dilaudid here. Will discharge home with prescription for [place] and Duragesic patch. Last Vital Signs Date Time Temp Pulse Resp B/P (MAP) Pulse Ox O2 Delivery O2 Flow Rate FiO2 07/25/20 22:46 98.1 80 18 149/80 (103) 97 Status: improved Disposition: HOME, SELF-CARE Condition: Stable Scripts Fentanyl 50MCG Patch* (DURAGESIC 50MCG*) 1 Each Patch.td72 1 PATCH TDERMAL EVERY 72 HOURS, #10 PATCH Prov: Aramis Fairchild MD 07/25/20 Hydrocodone Bit/Acetaminophen (HYDROCODON-ACETAMINOPHN 10-300) 1 Each Tablet 1 TAB ORAL Q6HR PRN for For Pain, #20 TAB 0 Refills Prov: Aramis Fairchild MD 07/25/20 Additional Instructions: Follow-up with your doctor in 7 days. Recommend referral to see pain management and psychiatrist. Return if symptoms worsen. Aramis Fairchild MD Jul 25, 2020 22:53
[2020-07-25] MEDS ORDERED: HYDROmorphone 1mg/ml Carpuject IM ONE (23:00)
[2020-07-25] MEDS ORDERED: DURAGESIC1 EAC1 TDERMAL (23:09)
[2020-07-25] MEDS ORDERED: HYDROCODON-ACE1 EA17 ORAL (23:09)
--- NOTE | 2020-07-25 23:09 | NUR ---
Patient arrived to ER via EMS c/o generalized body ache. New orders received from EDP and carried out. All procedures were explain to the patient . Patient verbalized understanding. Safety and comfort measures taken: bed set in low position, frequent rounds, call light within reach. Will continue monitoring the patient during the sift.
[2020-07-25 23:45] VITALS: BP 130/89
--- NOTE | 2020-07-25 23:46 | NUR ---
Patient was discharge home as EDP ordered. All vital signs were taken within normal range. Patient . All prescriptions and instructions were given to the patient . Patient verbalized understanding. patient left the hospital in stable condition .
== END 2020-07-25 23:47 | disposition home or self-care (01) ==
LOC: EDUNIT# 22:45 → EDBD 22:45 → EMR 22:55
DX: R52 Pain, unspecified (principal); I10 Essential (primary) hypertension
CPT/HCPCS: 96372; 99283; J1170